=== PATIENT | male | born 1930 ===

== ENCOUNTER 2018-07-08 09:09 | Emergency (ER) | payer MEDICARE, OTHER ==
[2018-07-08 09:19] VITALS: BMI 25.7
[2018-07-08 09:51] VITALS: O2SAT 96
--- NOTE | 2018-07-08 11:10 | RAD ---
HISTORY: cough r/o infiltrate COMPARISON: None available TECHNIQUE: Chest PA and lateral FINDINGS: LUNGS: Biapical pleural thickening. Increased lucencies especially within the bilateral upper lung anthony compatible with underlying emphysema. Mild left basilar atelectasis. 6 x 12 mm oblong opacity projects over the right 7th posterior rib of uncertain significance. Please note that chest x-ray has limited sensitivity for the detection of pulmonary masses. PLEURA: No significant pleural effusion identified. No definite pneumothorax . CARDIOVASCULAR: Heart size appears top normal. Atherosclerotic calcification present. OSSEOUS STRUCTURES: Degenerative changes. VISUALIZED UPPER ABDOMEN: Unremarkable. OTHER FINDINGS: None. IMPRESSION: Biapical pleural thickening. Emphysematous changes. Mild left basilar atelectasis. Nonspecific 6 x 12 mm oblong opacity projects over the right 7th posterior rib, uncertain significance.
--- NOTE | 2018-07-08 11:41 | C.PDOC ---
History Of Present Illness 87 y/o male presents to the ER complaining of cough and mild body aches which have been present for the past 5 days. Patient states that he received the flu vaccination in 2018. Patient denies having fever, chills, CP, SOB, nausea, and vomiting. Time Seen by Provider: 07/08/18 09:26 Chief Complaint (Nursing): Flu-like Symptoms History Per: Patient History/Exam Limitations: no limitations Onset/Duration Of Symptoms: Days Current Symptoms Are (Timing): Still Present Severity: Moderate Past Medical History Reviewed: Historical Data, Nursing Documentation, Vital Signs Vital Signs: Last Vital Signs Temp 98.0 F 07/08/18 09:19 Pulse 89 07/08/18 10:10 Resp 15 07/08/18 10:10 BP 112/59 L 07/08/18 10:10 Pulse Ox 96 07/08/18 10:10 - Medical History PMH: Anxiety, Fractures, HTN, Hypercholesterolemia Denies: Depression (denies) Other Surgeries: Hx of surgeries Family History: States: No Known Family Hx - Social History Hx Alcohol Use: No Hx Substance Use: No - Immunization History Hx Tetanus Toxoid Vaccination: No Hx Influenza Vaccination: Yes Hx Pneumococcal Vaccination: Yes Review Of Systems Except As Marked, All Systems Reviewed And Found Negative. Constitutional: Positive for: Malaise. Negative for: Fever, Chills Cardiovascular: Negative for: Chest Pain Respiratory: Positive for: Cough. Negative for: Shortness of Breath Gastrointestinal: Negative for: Nausea, Vomiting Physical Exam - Physical Exam Appears: Non-toxic, No Acute Distress Skin: Normal Color, Warm, Dry Head: Atraumatic, Normacephalic Eye(s): bilateral: Normal Inspection Ear(s): Bilateral: Normal Nose: Normal Oral Mucosa: Moist Throat: Normal, No Erythema, No Exudate Neck: Supple Chest: Symmetrical Cardiovascular: Rhythm Regular, Murmur (systolic murmur) Respiratory: Decreased Breath Sounds (mild coarse sounds bilaterally), No Rales, No Rhonchi, No Wheezing, Other (good air entry) Gastrointestinal/Abdominal: Soft, No Tenderness, No Guarding, No Rebound Neurological/Psych: Oriented x3, Normal Speech ED Course And Treatment O2 Sat by Pulse Oximetry: 96 (RA) Pulse Ox Interpretation: Normal - Other Rad CXR X-Ray: Viewed By Me, Read By Radiologist Interpretation: HISTORY: cough r/o infiltrate. COMPARISON: None available. TECHNIQUE: Chest PA and lateral. FINDINGS: LUNGS: Biapical pleural thickening. Increased lucencies especially within the bilateral upper lung anthony compatible with underlying emphysema. Mild left basilar atelectasis. 6 x 12 mm oblong opacity projects over the right 7th posterior rib of uncertain significance. Please note that chest x-ray has limited sensitivity for the detection of pulmonary masses. PLEURA: No significant pleural effusion identified. No definite pneumothorax . CARDIOVASCULAR: Heart size appears top normal. Atherosclerotic calcification present. OSSEOUS STRUCTURES: Degenerative changes. VISUALIZED UPPER ABDOMEN: Unremarkable. OTHER FINDINGS: None. IMPRESSION: Biapical pleural thickening. Emphysematous changes. Mild left basilar atelectasis. Nonspecific 6 x 12 mm oblong opacity projects over the right 7th posterior rib, uncertain significance. Medical Decision Making Medical Decision Making: Plan: --Flu Swab --CXR Disposition - Disposition Referrals: Gera Tripathi Jr., MD [Medical Doctor] - Disposition: HOME/ ROUTINE Disposition Time: 11:00 Condition: GOOD Additional Instructions: ALLEN HANSEN, thank you for letting us take care of you today. The emergency medical care you received today was directed at your acute symptoms. If you were prescribed any medication, please fill it and take as directed. It may take several days for your symptoms to resolve. Return to the Emergency Department if your symptoms worsen, do not improve, or if you have any other problems. Please contact your doctor or call one of the physicians/clinics you have been referred to that are listed on the Patient Visit Information form that is included in your discharge packet. Bring any paperwork you were given at discharge with you along with any medications you are taking to your follow up visit. Our treatment cannot replace ongoing medical care by a primary care provider outside of the emergency department. Thank you for allowing the [facility] team to be part of your care today. Follow up with your primary care doctor in 3-4 days for re-evaluation and further management. Prescriptions: Azithromycin [Zithromax] 250 mg PO DAILY #6 tab Instructions: Acute Bronchitis Forms: [facility] ([place]) - Clinical Impression Clinical Impression: Bronchitis - Scribe Statement The provider has reviewed the documentation as recorded by the Coleenibwild Schaffer Provider Attestation: All medical record entries made by the Scribe were at my direction and personally dictated by me. I have reviewed the chart and agree that the record accurately reflects my personal performance of the history, physical exam, medical decision making, and the department course for this patient. I have also personally directed, reviewed, and agree with the discharge instructions and disposition.
[2018-07-08 11:48] VITALS: BP 119/69; PULSE 87; RESP 22; TEMP 99.3
== END 2018-07-08 11:48 | disposition home or self-care (01) ==
LOC: C.ER 09:09
DX: J40 Bronchitis, not specified as acute or chronic (principal); I10 Essential (primary) hypertension; E78.00 Pure hypercholesterolemia, unspecified